=== PATIENT | male | born 1985 | race Caucasian/White ===

== ENCOUNTER 2024-03-12 16:29 | Inpatient (IN) | payer OTHER ==
[2024-03-12 18:56] VITALS: BMI 23.8
[2024-03-12] MEDS ORDERED: NALOXONE (NARCAN) HCL 4 MG/0.1 ML SPRAY NS PRN (21:31)
[2024-03-12] MEDS ORDERED: MAGNESIUM HYDROX 2400MG/30ML ORAL SUSPENSION 30 ML CUP PO PRN (21:31)
[2024-03-12] MEDS ORDERED: POLYETHYLENE GLYCOL (HEALTHYLAX) 3350 17 GM PACKET PO PRN (21:31)
[2024-03-12] MEDS ORDERED: MAG HYDROX/AL HYDROX/SIMETH 30 ML UNIT-DOSE CUP PO PRN (21:31)
[2024-03-12] MEDS ORDERED: BENZONATATE 200 MG CAPSULE PO PRN (21:31)
[2024-03-12] MEDS ORDERED: guaiFENesin 600 MG TABLET.ER (FP) PO PRN (21:31)
[2024-03-12] MEDS ORDERED: BISMUTH SUBSALICYLATE 524 MG/30 ML PO PRN (21:31)
[2024-03-12] MEDS ORDERED: P-EPHED 60MG/TRIPROLIDI 2.5MG TABLET PO PRN (21:31)
[2024-03-12] MEDS ORDERED: ONDANSETRON *ODT* 4 MG TABLET SL PRN (21:31)
[2024-03-12] MEDS ORDERED: NALOXONE HCL 0.4 MG/ML VIAL IM PRN (21:31)
[2024-03-12] MEDS ORDERED: IBUPROFEN 600 MG TABLET (FP) PO PRN (21:31)
[2024-03-12] MEDS ORDERED: NICOTINE POLACRILEX 2 MG GUM BUC PRN (21:31)
[2024-03-12] MEDS ORDERED: BENZOCAINE/MENTHOL (CHLORASEPTIC ) LOZENGE MM PRN (21:31)
[2024-03-12] MEDS ORDERED: LOPERAMIDE HCL 2 MG CAPSULE PO PRN (21:31)
[2024-03-12] MEDS ORDERED: NICOTINE POLACRILEX 2 MG LOZENGE BC PRN (21:31)
[2024-03-12] MEDS ORDERED: IBUPROFEN 400 MG TABLET (FP) PO PRN (21:31)
[2024-03-12] MEDS ORDERED: DICYCLOMINE HCL 10 MG CAPSULE PO PRN (21:31)
[2024-03-12] MEDS ORDERED: ACETAMINOPHEN 325 MG TABLET (FP) PO PRN (21:31)
[2024-03-13] MEDS: MELATONIN 5 MG TABLETS PO SCH (00:03)
[2024-03-13] MEDS: THIAMINE 100 MG TABLET PO SCH (00:03)
[2024-03-13] MEDS: PRENATAL VITAMINS W/ FOLIC ACID TABLET (FP) PO SCH (09:02)
[2024-03-13] MEDS: methaDONE HCL 10 MG TABLET PO ONE (09:50)
[2024-03-13] MEDS: cloNIDine HCL 0.1 MG TABLET PO SCH (09:50)
[2024-03-13] MEDS ORDERED: methaDONE HCL 10 MG TABLET PO PRN (11:04)
[2024-03-13 15:53] LABS: POTASSIUM 4.7 mmol/L (3.5-5.1)
[2024-03-13 15:57] LABS: ALBUMIN 3.3 g/dl (3.4-5.0); BLOOD UREA NITROGEN 15.5 mg/dL (7-18); CALCIUM 10.2 mg/dL (8.5-10.1)
[2024-03-13 15:58] LABS: HEMATOCRIT 38.1 % (35.4-49); HEMOGLOBIN 12.7 GM/dL (11.7-16.9); MCH 30.1 pg (25.7-33.7); MCHC 33.5 g/dl (32.0-35.9); MEAN CELL VOLUME 89.9 fl (80-96); MEAN PLT VOLUME 9.5 fl (7.5-11.1); PLATELET COUNT 217 10^3/uL (134-434); RBC 4.23 M/mm3 (4.00-5.60); RDW 13.3 % (11.9-15.9)
[2024-03-13 16:01] LABS: BILIRUBIN,TOTAL 0.5 mg/dL (0.2-1)
[2024-03-13 16:02] LABS: TOT PROT 6.5 g/dl (6.4-8.2)
[2024-03-13] MEDS: hydrOXYzine PAMOATE 25 MG CAPSULE (FP) PO PRN (18:06)
[2024-03-14 06:34] VITALS: PULSE 60; RESP 16
[2024-03-14 08:44] VITALS: BP 130/65; TEMP 98.4
[2024-03-14] MEDS: methaDONE 40 MG, methaDONE 10 MG PO ONE (09:36)
[2024-03-14] MEDS: METHOCARBAMOL 500 MG TABLET PO PRN (09:37)
[2024-03-15] MEDS ORDERED: cloNIDine HCL 0.1 MG TABLET PO PRN
[2024-03-15] MEDS ORDERED: methaDONE 40 MG, methaDONE 20 MG PO ONE (10:00)
[2024-03-16] MEDS ORDERED: methaDONE 40 MG, methaDONE 30 MG PO ONE (10:00)
[2024-03-17] MEDS ORDERED: methaDONE HCL 40 MG DISPERSABLE TABLET PO ONE (10:00)
[2024-03-18] MEDS ORDERED: methaDONE 80 MG, methaDONE 10 MG PO ONE (10:00)
== END 2024-03-14 10:50 | disposition home or self-care (01) | DRG 773 ==
LOC: YASAS 16:29 → Y6N 23:12
PROVIDERS: ADMIT Allergy & Immunology; ATTEND Surgery
PROC: HZ2ZZZZ Detoxification Services for Substance Abuse Treatment (ICD-10-PCS; principal; 2024-03-12)
DX: F11.23 Opioid dependence with withdrawal (principal); F17.210 Nicotine dependence, cigarettes, uncomplicated
CPT/HCPCS: 36415; 80053; 80305; 80307; 85027; 86780; 93005; 93010

== ENCOUNTER 2024-03-30 00:45 | Inpatient (IN) | payer OTHER ==
[2024-03-30 01:45] VITALS: BMI 24.8
[2024-03-30] MEDS ORDERED: guaiFENesin 600 MG TABLET.ER (FP) PO PRN (03:15)
[2024-03-30] MEDS ORDERED: BENZONATATE 200 MG CAPSULE PO PRN (03:15)
[2024-03-30] MEDS ORDERED: IBUPROFEN 400 MG TABLET (FP) PO PRN (03:15)
[2024-03-30] MEDS ORDERED: NALOXONE HCL 0.4 MG/ML VIAL IM PRN (03:15)
[2024-03-30] MEDS ORDERED: NALOXONE (NARCAN) HCL 4 MG/0.1 ML SPRAY NS PRN (03:15)
[2024-03-30] MEDS ORDERED: DICYCLOMINE HCL 10 MG CAPSULE PO PRN (03:15)
[2024-03-30] MEDS ORDERED: BENZOCAINE/MENTHOL (CHLORASEPTIC ) LOZENGE MM PRN (03:15)
[2024-03-30] MEDS ORDERED: POLYETHYLENE GLYCOL (HEALTHYLAX) 3350 17 GM PACKET PO PRN (03:15)
[2024-03-30] MEDS ORDERED: LOPERAMIDE HCL 2 MG CAPSULE PO PRN (03:15)
[2024-03-30] MEDS ORDERED: BISMUTH SUBSALICYLATE 524 MG/30 ML PO PRN (03:15)
[2024-03-30] MEDS ORDERED: ONDANSETRON *ODT* 4 MG TABLET SL PRN (03:15)
[2024-03-30] MEDS ORDERED: ACETAMINOPHEN 325 MG TABLET (FP) PO PRN (03:15)
[2024-03-30] MEDS ORDERED: MAGNESIUM HYDROX 2400MG/30ML ORAL SUSPENSION 30 ML CUP PO PRN (03:15)
[2024-03-30] MEDS ORDERED: MAG HYDROX/AL HYDROX/SIMETH 30 ML UNIT-DOSE CUP PO PRN (03:15)
[2024-03-30] MEDS: PRENATAL VITAMINS W/ FOLIC ACID TABLET (FP) PO SCH (10:09)
[2024-03-30] MEDS: NICOTINE 21 MG/24 HOURS TOPICAL PATCH TD SCH (10:10)
[2024-03-30] MEDS: methaDONE HCL 10 MG TABLET (FOR DETOX USE ONLY) PO ONE (12:42)
[2024-03-30] MEDS: hydrOXYzine PAMOATE 25 MG CAPSULE (FP) PO PRN (12:45)
[2024-03-30] MEDS: THIAMINE 100 MG TABLET PO SCH (22:33)
[2024-03-30] MEDS: cloNIDine HCL 0.1 MG TABLET PO PRN (22:34)
[2024-03-30] MEDS: MELATONIN 5 MG TABLETS PO SCH (23:55)
[2024-03-31] MEDS: METHOCARBAMOL 500 MG TABLET PO PRN (09:45)
[2024-03-31 10:13] LABS: HEMATOCRIT 37.7 % (35.4-49); HEMOGLOBIN 12.6 GM/dL (11.7-16.9); MCH 29.8 pg (25.7-33.7); MCHC 33.3 g/dl (32.0-35.9); MEAN CELL VOLUME 89.5 fl (80-96); MEAN PLT VOLUME 9.2 fl (7.5-11.1); PLATELET COUNT 227 10^3/uL (134-434); RBC 4.21 M/mm3 (4.00-5.60); RDW 13.5 % (11.9-15.9); WHITE BLOOD COUNT 5.2 K/mm3 (4.0-10.0)
[2024-03-31 10:57] LABS: POTASSIUM 4.5 mmol/L (3.5-5.1)
[2024-03-31 11:00] LABS: ALBUMIN 3.1 g/dl (3.4-5.0)
[2024-03-31 11:01] LABS: BLOOD UREA NITROGEN 9.7 mg/dL (7-18)
[2024-03-31 11:03] LABS: CALCIUM 9.5 mg/dL (8.5-10.1)
[2024-03-31 11:06] LABS: CREATININE 0.7 mg/dL (0.55-1.3)
[2024-03-31 11:07] LABS: BILIRUBIN,TOTAL 0.4 mg/dL (0.2-1)
[2024-03-31 11:08] LABS: TOT PROT 5.8 g/dl (6.4-8.2)
[2024-04-01] MEDS: IBUPROFEN 600 MG TABLET (FP) PO PRN (05:32)
[2024-04-01] MEDS: methaDONE HCL 10 MG TABLET (FOR DETOX USE ONLY) PO ONE (09:20)
[2024-04-01] MEDS: methaDONE HCL 10 MG TABLET PO ONE (10:44)
[2024-04-01] MEDS: cloNIDine HCL 0.1 MG TABLET PO SCH (13:14)
[2024-04-02] MEDS: methaDONE 40 MG, methaDONE 10 MG PO ONE (09:38)
[2024-04-02] MEDS: NICOTINE POLACRILEX 2 MG GUM BUC PRN (18:28)
[2024-04-02] MEDS: clonazePAM 0.25 MG ODT TABLETS SL PRN (18:28)
[2024-04-03] MEDS: methaDONE 40 MG, methaDONE 20 MG PO ONE (09:22)
[2024-04-03] MEDS ORDERED: methaDONE HCL 10 MG TABLET (FOR DETOX USE ONLY) PO ONE (10:00)
[2024-04-03] MEDS: cloNIDine HCL 0.1 MG TABLET PO PRN (18:09)
[2024-04-04 06:15] VITALS: TEMP 97.3
[2024-04-04 09:32] VITALS: BP 114/70; PULSE 68; RESP 18
[2024-04-04] MEDS: methaDONE 40 MG, methaDONE 30 MG PO ONE (09:34)
[2024-04-05] MEDS ORDERED: methaDONE HCL 40 MG DISPERSABLE TABLET PO ONE (10:00)
[2024-04-06] MEDS ORDERED: methaDONE 80 MG, methaDONE 10 MG PO ONE (10:00)
== END 2024-04-04 10:09 | disposition home or self-care (01) | DRG 773 ==
LOC: YASAS 00:45 → Y6N 03:28
PROVIDERS: ADMIT Allergy & Immunology; ATTEND Surgery
PROC: HZ2ZZZZ Detoxification Services for Substance Abuse Treatment (ICD-10-PCS; principal; 2024-03-30)
DX: F11.23 Opioid dependence with withdrawal (principal); F14.20 Cocaine dependence, uncomplicated; F12.20 Cannabis dependence, uncomplicated; F17.210 Nicotine dependence, cigarettes, uncomplicated; F19.24 Other psychoactive substance dependence with psychoactive substance-induced mood disorder; Z56.0 Unemployment, unspecified
CPT/HCPCS: 36415; 80053; 80305; 80307; 85027; 86780; 93005; 93010

== ENCOUNTER 2024-06-19 21:49 | Inpatient (IN) | payer OTHER ==
[2024-06-19 23:21] VITALS: BMI 24.2
[2024-06-19] MEDS ORDERED: guaiFENesin 600 MG TABLET.ER (FP) PO PRN (23:46)
[2024-06-19] MEDS ORDERED: NALOXONE (NARCAN) HCL 4 MG/0.1 ML SPRAY NS PRN (23:46)
[2024-06-19] MEDS ORDERED: ACETAMINOPHEN 325 MG TABLET (FP) PO PRN (23:46)
[2024-06-19] MEDS ORDERED: NICOTINE POLACRILEX 2 MG LOZENGE BC PRN (23:46)
[2024-06-19] MEDS ORDERED: DICYCLOMINE HCL 10 MG CAPSULE PO PRN (23:46)
[2024-06-19] MEDS ORDERED: IBUPROFEN 400 MG TABLET (FP) PO PRN (23:46)
[2024-06-19] MEDS ORDERED: NICOTINE POLACRILEX 2 MG GUM BUC PRN (23:46)
[2024-06-19] MEDS ORDERED: P-EPHED 60MG/TRIPROLIDI 2.5MG TABLET PO PRN (23:46)
[2024-06-19] MEDS ORDERED: MAGNESIUM HYDROX 2400MG/30ML ORAL SUSPENSION 30 ML CUP PO PRN (23:46)
[2024-06-19] MEDS ORDERED: BENZONATATE 200 MG CAPSULE PO PRN (23:46)
[2024-06-19] MEDS ORDERED: BISMUTH SUBSALICYLATE 524 MG/30 ML PO PRN (23:46)
[2024-06-19] MEDS ORDERED: LOPERAMIDE HCL 2 MG CAPSULE PO PRN (23:46)
[2024-06-19] MEDS ORDERED: IBUPROFEN 600 MG TABLET (FP) PO PRN (23:46)
[2024-06-19] MEDS ORDERED: POLYETHYLENE GLYCOL (HEALTHYLAX) 3350 17 GM PACKET PO PRN (23:46)
[2024-06-20] MEDS: PRENATAL VITAMINS W/ FOLIC ACID TABLET (FP) PO SCH (09:57)
[2024-06-20] MEDS: METHOCARBAMOL 500 MG TABLET PO PRN (09:57)
[2024-06-20] MEDS: hydrOXYzine PAMOATE 25 MG CAPSULE (FP) PO PRN (09:57)
[2024-06-20] MEDS: methaDONE HCL 10 MG TABLET PO ONE (09:58)
[2024-06-20] MEDS: cloNIDine HCL 0.1 MG TABLET PO SCH (09:58)
[2024-06-20] MEDS ORDERED: methaDONE HCL 10 MG TABLET PO PRN (11:06)
[2024-06-20 12:49] LABS: HEMATOCRIT 38.3 % (35.4-49); HEMOGLOBIN 12.6 GM/dL (11.7-16.9); MCH 29.7 pg (25.7-33.7); MCHC 32.9 g/dl (32.0-35.9); MEAN CELL VOLUME 90.4 fl (80-96); MEAN PLT VOLUME 9.3 fl (7.5-11.1); PLATELET COUNT 231 10^3/uL (134-434); RBC 4.24 M/mm3 (4.00-5.60); RDW 13.5 % (11.9-15.9); WHITE BLOOD COUNT 8.5 K/mm3 (4.0-10.0)
[2024-06-20 13:01] LABS: CHLORIDE 110 mmol/L (98-107); POTASSIUM 4.3 mmol/L (3.5-5.1); SODIUM 140 mmol/L (136-145)
[2024-06-20 13:43] LABS: BLOOD UREA NITROGEN 14.5 mg/dL (7-18)
[2024-06-20 13:45] LABS: GLUCOSE,RANDOM 123 mg/dL (74-106)
[2024-06-20 13:46] LABS: ALBUMIN 3.4 g/dl (3.4-5.0)
[2024-06-20 13:47] LABS: ANION GAP 6 mmol/L (4-13); BILIRUBIN,TOTAL 0.3 mg/dL (0.2-1); CALCIUM 9.9 mg/dL (8.5-10.1); CO2 24 mmol/L (21-32); TOT PROT 6.2 g/dl (6.4-8.2)
[2024-06-20 13:48] LABS: ALK PHOS 77 U/L (45-117)
[2024-06-20 13:50] LABS: SGPT/ALT 35 U/L (13-61)
[2024-06-20 13:51] LABS: CREATININE 1.1 mg/dL (0.55-1.3); SGOT/AST 21 U/L (15-37)
[2024-06-20] MEDS: MELATONIN 5 MG TABLETS PO SCH (22:39)
[2024-06-20] MEDS: THIAMINE 100 MG TABLET PO SCH (22:39)
[2024-06-21] MEDS: methaDONE 40 MG, methaDONE 10 MG PO ONE (09:31)
[2024-06-22] MEDS: methaDONE 40 MG, methaDONE 20 MG PO ONE (09:36)
[2024-06-22] MEDS: cloNIDine HCL 0.1 MG TABLET PO PRN (09:39)
[2024-06-23] MEDS: BENZOCAINE/MENTHOL (CHLORASEPTIC ) LOZENGE MM PRN (05:48)
[2024-06-23] MEDS: methaDONE 40 MG, methaDONE 30 MG PO ONE (09:33)
[2024-06-23] MEDS: diazePAM 5 MG TABLET PO PRN (16:47)
[2024-06-24] MEDS: MAG HYDROX/AL HYDROX/SIMETH 30 ML UNIT-DOSE CUP PO PRN (03:24)
[2024-06-24] MEDS: ONDANSETRON *ODT* 4 MG TABLET SL PRN (09:59)
[2024-06-24] MEDS: methaDONE HCL 40 MG DISPERSABLE TABLET PO ONE (09:59)
[2024-06-24] MEDS ORDERED: TRIMETHOBENZAMIDE HCL 200MG/2ML INJ IM PRN (10:00)
[2024-06-24] MEDS: NALOXONE (NYS OPIOID OVERDOSE PROGRAM) 4 MG/0.1 ML SPRAY NS SCH (14:54)
[2024-06-25 09:11] VITALS: PULSE 60; RESP 16
[2024-06-25] MEDS ORDERED: methaDONE 80 MG, methaDONE 10 MG PO ONE (10:00)
[2024-06-25] MEDS: methaDONE 40 MG, methaDONE 30 MG PO ONE (10:08)
[2024-06-25] MEDS: methaDONE HCL 40 MG DISPERSABLE TABLET PO ONE (10:18)
[2024-06-25 13:39] VITALS: BP 136/75; TEMP 97.3
== END 2024-06-25 13:57 | disposition other institution (70) | DRG 773 ==
LOC: YASAS 21:49 → Y6N 06-20 02:11
PROVIDERS: ADMIT Allergy & Immunology; ATTEND Surgery
PROC: HZ2ZZZZ Detoxification Services for Substance Abuse Treatment (ICD-10-PCS; principal; 2024-06-20)
DX: F11.23 Opioid dependence with withdrawal (principal); F14.20 Cocaine dependence, uncomplicated; F12.20 Cannabis dependence, uncomplicated; F17.210 Nicotine dependence, cigarettes, uncomplicated; F19.280 Other psychoactive substance dependence with psychoactive substance-induced anxiety disorder; Z56.0 Unemployment, unspecified; Z59.00 Homelessness unspecified
CPT/HCPCS: 36415; 80053; 80305; 80307; 82962; 83036; 85027; 86780; 87811; 93005; 93010; Q0162

== ENCOUNTER 2024-06-25 13:41 | Inpatient (IN) | payer OTHER ==
[2024-06-25] MEDS ORDERED: IBUPROFEN 400 MG TABLET (FP) PO PRN (14:45)
[2024-06-25] MEDS ORDERED: guaiFENesin 600 MG TABLET.ER (FP) PO PRN (14:45)
[2024-06-25] MEDS ORDERED: NALOXONE HCL 0.4 MG/ML VIAL IVPUSH PRN (14:45)
[2024-06-25] MEDS ORDERED: MAGNESIUM HYDROX 2400MG/30ML ORAL SUSPENSION 30 ML CUP PO PRN (14:45)
[2024-06-25] MEDS ORDERED: METHOCARBAMOL 500 MG TABLET PO PRN (14:45)
[2024-06-25] MEDS ORDERED: MAG HYDROX/AL HYDROX/SIMETH 30 ML UNIT-DOSE CUP PO PRN (14:45)
[2024-06-25] MEDS ORDERED: NALOXONE (NARCAN) HCL 4 MG/0.1 ML SPRAY NS PRN (14:45)
[2024-06-25] MEDS ORDERED: NICOTINE POLACRILEX 4 MG GUM BUC PRN (14:45)
[2024-06-25] MEDS ORDERED: ACETAMINOPHEN 325 MG TABLET (FP) PO PRN (14:45)
[2024-06-25] MEDS ORDERED: LOPERAMIDE HCL 2 MG CAPSULE PO PRN (14:45)
[2024-06-25] MEDS ORDERED: NICOTINE 14 MG/24 HOURS TOPICAL PATCH TD PRN (14:45)
[2024-06-25] MEDS ORDERED: IBUPROFEN 600 MG TABLET (FP) PO PRN (14:45)
[2024-06-25] MEDS ORDERED: NICOTINE POLACRILEX 4 MG LOZENGE BC PRN (14:45)
[2024-06-25] MEDS ORDERED: BENZOCAINE/MENTHOL (CHLORASEPTIC ) LOZENGE MM PRN (14:45)
[2024-06-25] MEDS ORDERED: POLYETHYLENE GLYCOL (HEALTHYLAX) 3350 17 GM PACKET PO PRN (14:45)
[2024-06-25] MEDS ORDERED: BENZONATATE 200 MG CAPSULE PO PRN (14:45)
[2024-06-25] MEDS: THIAMINE 100 MG TABLET PO SCH (21:08)
[2024-06-25] MEDS: MELATONIN 5 MG TABLETS PO SCH (21:08)
[2024-06-26] MEDS ORDERED: methaDONE HCL 10 MG TABLET PO SCH (06:00)
[2024-06-26] MEDS: methaDONE 40 MG, methaDONE 10 MG PO SCH (06:46)
[2024-06-26 06:54] VITALS: RESP 16
[2024-06-26] MEDS: PRENATAL VITAMINS W/ FOLIC ACID TABLET (FP) PO SCH (09:53)
[2024-06-26] MEDS: hydrOXYzine PAMOATE 25 MG CAPSULE (FP) PO PRN (21:09)
[2024-06-27 06:47] VITALS: BP 119/60; PULSE 64; TEMP 98.3
[2024-06-27] MEDS: NALOXONE (NYS OPIOID OVERDOSE PROGRAM) 4 MG/0.1 ML SPRAY NS SCH (15:10)
== END 2024-06-27 15:07 | disposition home or self-care (01) | DRG 772 ==
LOC: YASAS 13:41 → Y5N 13:43
PROVIDERS: ADMIT Psychiatry & Neurology Pain Medicine; ATTEND Psychiatry & Neurology Pain Medicine
PROC: HZ42ZZZ Group Counseling for Substance Abuse Treatment, Cognitive-Behavioral (ICD-10-PCS; principal; 2024-06-25)
DX: F11.20 Opioid dependence, uncomplicated (principal); F14.20 Cocaine dependence, uncomplicated; F12.20 Cannabis dependence, uncomplicated; F17.210 Nicotine dependence, cigarettes, uncomplicated; F19.280 Other psychoactive substance dependence with psychoactive substance-induced anxiety disorder

== ENCOUNTER 2024-07-03 19:21 | Inpatient (IN) | payer OTHER ==
[2024-07-03 20:03] VITALS: BMI 23.5
[2024-07-03] MEDS ORDERED: IBUPROFEN 400 MG TABLET (FP) PO PRN (20:13)
[2024-07-03] MEDS ORDERED: IBUPROFEN 600 MG TABLET (FP) PO PRN (20:13)
[2024-07-03] MEDS ORDERED: BENZOCAINE/MENTHOL (CHLORASEPTIC ) LOZENGE MM PRN (20:13)
[2024-07-03] MEDS ORDERED: POLYETHYLENE GLYCOL (HEALTHYLAX) 3350 17 GM PACKET PO PRN (20:13)
[2024-07-03] MEDS ORDERED: NICOTINE POLACRILEX 2 MG GUM BUC PRN (20:13)
[2024-07-03] MEDS ORDERED: NICOTINE POLACRILEX 2 MG LOZENGE BC PRN (20:13)
[2024-07-03] MEDS ORDERED: ACETAMINOPHEN 325 MG TABLET (FP) PO PRN (20:13)
[2024-07-03] MEDS ORDERED: MAG HYDROX/AL HYDROX/SIMETH 30 ML UNIT-DOSE CUP PO PRN (20:13)
[2024-07-03] MEDS ORDERED: P-EPHED 60MG/TRIPROLIDI 2.5MG TABLET PO PRN (20:13)
[2024-07-03] MEDS ORDERED: BENZONATATE 200 MG CAPSULE PO PRN (20:13)
[2024-07-03] MEDS ORDERED: DICYCLOMINE HCL 10 MG CAPSULE PO PRN (20:13)
[2024-07-03] MEDS ORDERED: MAGNESIUM HYDROX 2400MG/30ML ORAL SUSPENSION 30 ML CUP PO PRN (20:13)
[2024-07-03] MEDS ORDERED: BISMUTH SUBSALICYLATE 524 MG/30 ML PO PRN (20:13)
[2024-07-03] MEDS ORDERED: ONDANSETRON *ODT* 4 MG TABLET SL PRN (20:13)
[2024-07-03] MEDS ORDERED: guaiFENesin 600 MG TABLET.ER (FP) PO PRN (20:13)
[2024-07-03] MEDS ORDERED: LOPERAMIDE HCL 2 MG CAPSULE PO PRN (20:13)
[2024-07-03] MEDS ORDERED: NALOXONE (NARCAN) HCL 4 MG/0.1 ML SPRAY NS PRN (20:13)
[2024-07-03] MEDS: THIAMINE 100 MG TABLET PO SCH (22:17)
[2024-07-03] MEDS: methaDONE HCL 10 MG TABLET (FOR DETOX USE ONLY) PO ONE (22:17)
[2024-07-03] MEDS: MELATONIN 5 MG TABLETS PO SCH (22:17)
[2024-07-03] MEDS: METHOCARBAMOL 500 MG TABLET PO PRN (22:18)
[2024-07-04] MEDS: FLU VACCINE (FLULAVAL) PF 45 MCG/0.5 ML SYRINGE 2024-2025 IM ONE (09:25)
[2024-07-04] MEDS: PRENATAL VITAMINS W/ FOLIC ACID TABLET (FP) PO SCH (09:26)
[2024-07-04] MEDS: NICOTINE 7 MG/24 HOURS TOPICAL PATCH TD SCH (09:29)
[2024-07-04] MEDS: cloNIDine HCL 0.1 MG TABLET PO PRN (09:29)
[2024-07-04 12:10] LABS: HIV INTERPRETATION NEGATIVE (NEGATIVE)
[2024-07-05 06:43] VITALS: RESP 16; TEMP 97.9
[2024-07-05] MEDS: methaDONE HCL 10 MG TABLET (FOR DETOX USE ONLY) PO ONE (09:20)
[2024-07-05 11:40] VITALS: BP 123/61; PULSE 75
[2024-07-05] MEDS: NALOXONE (NYS OPIOID OVERDOSE PROGRAM) 4 MG/0.1 ML SPRAY NS SCH (12:01)
[2024-07-07] MEDS ORDERED: methaDONE HCL 10 MG TABLET (FOR DETOX USE ONLY) PO ONE (10:00)
== END 2024-07-05 11:22 | disposition left against medical advice (07) | DRG 770 ==
LOC: YASAS 19:21 → Y6N 20:23
PROVIDERS: ADMIT Allergy & Immunology; ATTEND Surgery
PROC: HZ2ZZZZ Detoxification Services for Substance Abuse Treatment (ICD-10-PCS; principal; 2024-07-03)
DX: F11.23 Opioid dependence with withdrawal (principal); F14.20 Cocaine dependence, uncomplicated; F12.20 Cannabis dependence, uncomplicated; F17.210 Nicotine dependence, cigarettes, uncomplicated; Z59.00 Homelessness unspecified; Z56.0 Unemployment, unspecified
CPT/HCPCS: 36415; 80305; 80307; 86803; 87389; 90656; G0008

== ENCOUNTER 2024-08-01 12:29 | Inpatient (IN) | payer OTHER ==
[2024-08-01 16:09] VITALS: BMI 26.2
[2024-08-01] MEDS ORDERED: methaDONE HCL 10 MG TABLET (FOR DETOX USE ONLY) PO PRN (16:19)
[2024-08-01] MEDS ORDERED: DICYCLOMINE HCL 10 MG CAPSULE PO PRN (16:31)
[2024-08-01] MEDS ORDERED: P-EPHED 60MG/TRIPROLIDI 2.5MG TABLET PO PRN (16:31)
[2024-08-01] MEDS ORDERED: NICOTINE POLACRILEX 2 MG LOZENGE BC PRN (16:31)
[2024-08-01] MEDS ORDERED: BENZONATATE 200 MG CAPSULE PO PRN (16:31)
[2024-08-01] MEDS ORDERED: ACETAMINOPHEN 325 MG TABLET (FP) PO PRN (16:31)
[2024-08-01] MEDS ORDERED: MAG HYDROX/AL HYDROX/SIMETH 30 ML UNIT-DOSE CUP PO PRN (16:31)
[2024-08-01] MEDS ORDERED: ONDANSETRON *ODT* 4 MG TABLET SL PRN (16:31)
[2024-08-01] MEDS ORDERED: LOPERAMIDE HCL 2 MG CAPSULE PO PRN (16:31)
[2024-08-01] MEDS ORDERED: NICOTINE POLACRILEX 2 MG GUM BUC PRN (16:31)
[2024-08-01] MEDS ORDERED: NALOXONE (NARCAN) HCL 4 MG/0.1 ML SPRAY NS PRN (16:31)
[2024-08-01] MEDS ORDERED: IBUPROFEN 600 MG TABLET (FP) PO PRN (16:31)
[2024-08-01] MEDS ORDERED: BENZOCAINE/MENTHOL (CHLORASEPTIC ) LOZENGE MM PRN (16:31)
[2024-08-01] MEDS ORDERED: MAGNESIUM HYDROX 2400MG/30ML ORAL SUSPENSION 30 ML CUP PO PRN (16:31)
[2024-08-01] MEDS ORDERED: BISMUTH SUBSALICYLATE 524 MG/30 ML PO PRN (16:31)
[2024-08-01] MEDS ORDERED: guaiFENesin 600 MG TABLET.ER (FP) PO PRN (16:31)
[2024-08-01] MEDS ORDERED: POLYETHYLENE GLYCOL (HEALTHYLAX) 3350 17 GM PACKET PO PRN (16:31)
[2024-08-01] MEDS ORDERED: IBUPROFEN 400 MG TABLET (FP) PO PRN (16:31)
[2024-08-01] MEDS ORDERED: methaDONE HCL 10 MG TABLET (FOR DETOX USE ONLY) ONE (16:43)
[2024-08-01] MEDS: methaDONE HCL 10 MG TABLET (FOR DETOX USE ONLY) PO ONE (16:50)
[2024-08-01] MEDS: MELATONIN 5 MG TABLETS PO SCH (22:33)
[2024-08-01] MEDS: THIAMINE 100 MG TABLET PO SCH (22:33)
[2024-08-01] MEDS: METHOCARBAMOL 500 MG TABLET PO PRN (22:33)
[2024-08-01] MEDS: cloNIDine HCL 0.1 MG TABLET PO PRN (22:33)
[2024-08-02] MEDS: PRENATAL VITAMINS W/ FOLIC ACID TABLET (FP) PO SCH (10:14)
[2024-08-02] MEDS ORDERED: FLU VACCINE (FLULAVAL) PF 45 MCG/0.5 ML SYRINGE 2024-2025 IM ONE (12:00)
[2024-08-02 14:03] LABS: HEMATOCRIT 36.3 % (35.4-49); HEMOGLOBIN 11.7 GM/dL (11.7-16.9); MCH 29.3 pg (25.7-33.7); MCHC 32.2 g/dl (32.0-35.9); MEAN PLT VOLUME 8.9 fl (7.5-11.1); PLATELET COUNT 266 10^3/uL (134-434); RBC 3.98 M/mm3 (4.00-5.60); RDW 13.2 % (11.9-15.9)
[2024-08-02 14:20] LABS: POTASSIUM 4.1 mmol/L (3.5-5.1)
[2024-08-02 14:23] LABS: CALCIUM 9.5 mg/dL (8.5-10.1)
[2024-08-02 14:24] LABS: ALBUMIN 2.8 g/dl (3.4-5.0); BLOOD UREA NITROGEN 17.6 mg/dL (7-18)
[2024-08-02 14:27] LABS: CREATININE 0.9 mg/dL (0.55-1.3)
[2024-08-02 14:28] LABS: BILIRUBIN,TOTAL 0.3 mg/dL (0.2-1); TOT PROT 5.4 g/dl (6.4-8.2)
[2024-08-02 20:53] VITALS: RESP 16
[2024-08-03] MEDS: diazePAM 5 MG TABLET PO PRN (08:30)
[2024-08-03 09:02] VITALS: BP 129/63; PULSE 60; TEMP 97.6
[2024-08-03] MEDS: methaDONE HCL 10 MG TABLET (FOR DETOX USE ONLY) PO ONE (09:54)
[2024-08-05] MEDS ORDERED: methaDONE HCL 10 MG TABLET (FOR DETOX USE ONLY) PO ONE (10:00)
== END 2024-08-03 11:54 | disposition home or self-care (01) | DRG 773 ==
LOC: YASAS 12:29 → Y6N 16:38
PROVIDERS: ADMIT Allergy & Immunology; ATTEND Surgery
PROC: HZ2ZZZZ Detoxification Services for Substance Abuse Treatment (ICD-10-PCS; principal; 2024-08-01)
DX: F11.23 Opioid dependence with withdrawal (principal); F14.20 Cocaine dependence, uncomplicated; F12.20 Cannabis dependence, uncomplicated; F17.210 Nicotine dependence, cigarettes, uncomplicated; F19.24 Other psychoactive substance dependence with psychoactive substance-induced mood disorder; Z56.0 Unemployment, unspecified; Z59.00 Homelessness unspecified
CPT/HCPCS: 36415; 80053; 80305; 85027

== ENCOUNTER 2024-08-18 10:13 | Inpatient (IN) | payer OTHER ==
[2024-08-18 10:36] VITALS: BMI 24.4
[2024-08-18] MEDS ORDERED: POLYETHYLENE GLYCOL (HEALTHYLAX) 3350 17 GM PACKET PO PRN (11:20)
[2024-08-18] MEDS ORDERED: ACETAMINOPHEN 325 MG TABLET (FP) PO PRN (11:20)
[2024-08-18] MEDS ORDERED: BENZOCAINE/MENTHOL (CHLORASEPTIC ) LOZENGE MM PRN (11:20)
[2024-08-18] MEDS ORDERED: P-EPHED 60MG/TRIPROLIDI 2.5MG TABLET PO PRN (11:20)
[2024-08-18] MEDS ORDERED: MAGNESIUM HYDROX 2400MG/30ML ORAL SUSPENSION 30 ML CUP PO PRN (11:20)
[2024-08-18] MEDS ORDERED: NICOTINE POLACRILEX 2 MG LOZENGE BC PRN (11:20)
[2024-08-18] MEDS ORDERED: LOPERAMIDE HCL 2 MG CAPSULE PO PRN (11:20)
[2024-08-18] MEDS ORDERED: NALOXONE (NARCAN) HCL 4 MG/0.1 ML SPRAY NS PRN (11:20)
[2024-08-18] MEDS ORDERED: IBUPROFEN 600 MG TABLET (FP) PO PRN (11:20)
[2024-08-18] MEDS ORDERED: guaiFENesin 600 MG TABLET.ER (FP) PO PRN (11:20)
[2024-08-18] MEDS ORDERED: IBUPROFEN 400 MG TABLET (FP) PO PRN (11:20)
[2024-08-18] MEDS ORDERED: BISMUTH SUBSALICYLATE 524 MG/30 ML PO PRN (11:20)
[2024-08-18] MEDS ORDERED: ONDANSETRON *ODT* 4 MG TABLET SL PRN (11:20)
[2024-08-18] MEDS ORDERED: DICYCLOMINE HCL 10 MG CAPSULE PO PRN (11:20)
[2024-08-18] MEDS ORDERED: BENZONATATE 200 MG CAPSULE PO PRN (11:20)
[2024-08-18] MEDS ORDERED: MAG HYDROX/AL HYDROX/SIMETH 30 ML UNIT-DOSE CUP PO PRN (11:20)
[2024-08-18] MEDS: methaDONE HCL 10 MG TABLET (FOR DETOX USE ONLY) PO ONE (13:45)
[2024-08-18] MEDS: METHOCARBAMOL 500 MG TABLET PO PRN (13:46)
[2024-08-18] MEDS: methaDONE HCL 10 MG TABLET (FOR DETOX USE ONLY) PO PRN (21:22)
[2024-08-18] MEDS: THIAMINE 100 MG TABLET PO SCH (21:23)
[2024-08-18] MEDS: MELATONIN 5 MG TABLETS PO SCH (21:23)
[2024-08-18] MEDS: clonazePAM 0.5 MG ODT TABLETS SL PRN (21:23)
[2024-08-19] MEDS: PRENATAL VITAMINS W/ FOLIC ACID TABLET (FP) PO SCH (10:04)
[2024-08-19] MEDS: NICOTINE POLACRILEX 2 MG GUM BUC PRN (11:59)
[2024-08-19] MEDS: clonazePAM 0.5 MG ODT TABLETS SL PRN (17:57)
[2024-08-19] MEDS: cloNIDine HCL 0.1 MG TABLET PO PRN (21:43)
[2024-08-20] MEDS: methaDONE HCL 10 MG TABLET (FOR DETOX USE ONLY) PO ONE (09:41)
[2024-08-20 11:13] LABS: POTASSIUM 4.1 mmol/L (3.5-5.1)
[2024-08-20 11:17] LABS: HEMATOCRIT 35.4 % (35.4-49); HEMOGLOBIN 11.4 GM/dL (11.7-16.9); MCH 29.3 pg (25.7-33.7); MCHC 32.2 g/dl (32.0-35.9); MEAN CELL VOLUME 91.1 fl (80-96); MEAN PLT VOLUME 9.6 fl (7.5-11.1); PLATELET COUNT 186 10^3/uL (134-434); RBC 3.89 M/mm3 (4.00-5.60); RDW 13.1 % (11.9-15.9); WHITE BLOOD COUNT 5.4 K/mm3 (4.0-10.0)
[2024-08-20 11:21] LABS: CALCIUM 9.5 mg/dL (8.5-10.1)
[2024-08-20 11:25] LABS: CREATININE 0.9 mg/dL (0.55-1.3)
[2024-08-20 11:27] LABS: BILIRUBIN,TOTAL 0.2 mg/dL (0.2-1); TOT PROT 5.7 g/dl (6.4-8.2)
[2024-08-20 18:10] VITALS: BP 104/63; PULSE 61; RESP 18; TEMP 99.1
[2024-08-20] MEDS: NALOXONE (NYS OPIOID OVERDOSE PROGRAM) 4 MG/0.1 ML SPRAY NS SCH (18:20)
[2024-08-22] MEDS ORDERED: methaDONE HCL 10 MG TABLET (FOR DETOX USE ONLY) PO ONE (10:00)
== END 2024-08-20 18:24 | disposition left against medical advice (07) | DRG 770 ==
LOC: YASAS 10:13 → Y3N 12:06
PROVIDERS: ADMIT Allergy & Immunology; ATTEND Allergy & Immunology
PROC: HZ2ZZZZ Detoxification Services for Substance Abuse Treatment (ICD-10-PCS; principal; 2024-08-18)
DX: F11.23 Opioid dependence with withdrawal (principal); F14.20 Cocaine dependence, uncomplicated; F12.20 Cannabis dependence, uncomplicated; F17.210 Nicotine dependence, cigarettes, uncomplicated; F41.9 Anxiety disorder, unspecified; Z59.01 Sheltered homelessness
CPT/HCPCS: 36415; 80053; 80305; 80307; 85027

== ENCOUNTER 2024-10-15 23:30 | Inpatient (IN) | payer OTHER ==
[2024-10-15 23:52] VITALS: BMI 26.1
[2024-10-16] MEDS ORDERED: METHOCARBAMOL 500 MG TABLET PO PRN (00:26)
[2024-10-16] MEDS ORDERED: NALOXONE (NARCAN) HCL 4 MG/0.1 ML SPRAY NS PRN (00:26)
[2024-10-16] MEDS ORDERED: BENZOCAINE/MENTHOL (CHLORASEPTIC ) LOZENGE MM PRN (00:26)
[2024-10-16] MEDS ORDERED: POLYETHYLENE GLYCOL (HEALTHYLAX) 3350 17 GM PACKET PO PRN (00:26)
[2024-10-16] MEDS ORDERED: DICYCLOMINE HCL 10 MG CAPSULE PO PRN (00:26)
[2024-10-16] MEDS ORDERED: hydrOXYzine PAMOATE 25 MG CAPSULE (FP) PO PRN (00:26)
[2024-10-16] MEDS ORDERED: IBUPROFEN 600 MG TABLET (FP) PO PRN (00:26)
[2024-10-16] MEDS ORDERED: MAGNESIUM HYDROX 2400MG/30ML ORAL SUSPENSION 30 ML CUP PO PRN (00:26)
[2024-10-16] MEDS ORDERED: LOPERAMIDE HCL 2 MG CAPSULE PO PRN (00:26)
[2024-10-16] MEDS ORDERED: BENZONATATE 200 MG CAPSULE PO PRN (00:26)
[2024-10-16] MEDS ORDERED: BISMUTH SUBSALICYLATE 524 MG/30 ML PO PRN (00:26)
[2024-10-16] MEDS ORDERED: NICOTINE POLACRILEX 2 MG LOZENGE BC PRN (00:26)
[2024-10-16] MEDS ORDERED: MAG HYDROX/AL HYDROX/SIMETH 30 ML UNIT-DOSE CUP PO PRN (00:26)
[2024-10-16] MEDS ORDERED: ONDANSETRON *ODT* 4 MG TABLET SL PRN (00:26)
[2024-10-16] MEDS ORDERED: guaiFENesin 600 MG TABLET.ER (FP) PO PRN (00:26)
[2024-10-16] MEDS ORDERED: IBUPROFEN 400 MG TABLET (FP) PO PRN (00:26)
[2024-10-16] MEDS: PRENATAL VITAMINS W/ FOLIC ACID TABLET (FP) PO SCH (10:47)
[2024-10-16] MEDS: cloNIDine HCL 0.1 MG TABLET PO PRN (10:47)
[2024-10-16] MEDS: NICOTINE 14 MG/24 HOURS TOPICAL PATCH TD SCH (10:47)
[2024-10-16] MEDS: methaDONE HCL 10 MG TABLET (FOR DETOX USE ONLY) PO ONE (10:48)
[2024-10-16 12:05] LABS: CHLORIDE 110 mmol/L (98-107); HEMATOCRIT 35.8 % (35.4-49); HEMOGLOBIN 12.1 GM/dL (11.7-16.9); MCH 29.7 pg (25.7-33.7); MCHC 33.9 g/dl (32.0-35.9); MEAN CELL VOLUME 87.8 fl (80-96); MEAN PLT VOLUME 8.9 fl (7.5-11.1); PLATELET COUNT 230 10^3/uL (134-434); POTASSIUM 4.3 mmol/L (3.5-5.1); RBC 4.07 M/mm3 (4.00-5.60); RDW 13.4 % (11.9-15.9); SODIUM 141 mmol/L (136-145); WHITE BLOOD COUNT 4.9 K/mm3 (4.0-10.0)
[2024-10-16 12:15] LABS: ALBUMIN 3.1 g/dl (3.4-5.0); ANION GAP 4 mmol/L (4-13); BLOOD UREA NITROGEN 19.8 mg/dL (7-18); CALCIUM 9.6 mg/dL (8.5-10.1); CO2 27 mmol/L (21-32); GLUCOSE,RANDOM 109 mg/dL (74-106)
[2024-10-16 12:18] LABS: CREATININE 0.9 mg/dL (0.55-1.3); SGOT/AST 12 U/L (15-37); SGPT/ALT 21 U/L (13-61)
[2024-10-16 12:20] LABS: BILIRUBIN,TOTAL 0.4 mg/dL (0.2-1); TOT PROT 5.9 g/dl (6.4-8.2)
[2024-10-16 12:21] LABS: ALK PHOS 67 U/L (45-117)
[2024-10-16] MEDS: methaDONE HCL 10 MG TABLET (FOR DETOX USE ONLY) PO PRN (17:31)
[2024-10-16] MEDS: THIAMINE 100 MG TABLET PO SCH (22:29)
[2024-10-16] MEDS: MELATONIN 5 MG TABLETS PO SCH (22:29)
[2024-10-17 06:22] VITALS: RESP 16
[2024-10-17 09:23] VITALS: TEMP 97.7
[2024-10-17] MEDS: ACETAMINOPHEN 325 MG TABLET (FP) PO PRN (10:38)
[2024-10-17 13:25] VITALS: BP 119/60; PULSE 63
[2024-10-18] MEDS ORDERED: methaDONE HCL 10 MG TABLET (FOR DETOX USE ONLY) PO ONE (10:00)
== END 2024-10-17 13:41 | disposition left against medical advice (07) | DRG 770 ==
LOC: YASAS 23:30 → Y3N 10-16 01:44
PROVIDERS: ADMIT Allergy & Immunology; ATTEND Allergy & Immunology
PROC: HZ2ZZZZ Detoxification Services for Substance Abuse Treatment (ICD-10-PCS; principal; 2024-10-16)
DX: F11.23 Opioid dependence with withdrawal (principal); F14.20 Cocaine dependence, uncomplicated; F12.20 Cannabis dependence, uncomplicated; F17.210 Nicotine dependence, cigarettes, uncomplicated; F19.24 Other psychoactive substance dependence with psychoactive substance-induced mood disorder; F32.A Depression, unspecified; R46.89 Other symptoms and signs involving appearance and behavior
CPT/HCPCS: 36415; 80053; 80305; 80307; 85027; 86780; 93005; 93010